=== PATIENT | female | born 1960 | race Caucasian/White ===

== ENCOUNTER 2021-06-05 11:08 | Emergency (ER) | payer OTHER ==
[2021-06-05] MEDS ORDERED: Acetaminophen/HYDROcodone 325-5 MG Tab PO ONE (11:47)
--- NOTE | 2021-06-05 11:54 | EDM.PDOC ---
ED HPI GENERAL MEDICAL PROBLEM - General Chief Complaint: Lower Extremity Injury/Pain Stated Complaint: FELL RIGHT CALF PAIN Time Seen by Provider: 06/05/21 11:40 Source of Information: Reports: Patient, RN History Limitations: Reports: No Limitations - History of Present Illness INITIAL COMMENTS - FREE TEXT/NARRATIVE: 60 yo female fell down some stairs today and had injury to her R distal leg. Not able to bear weight. Has an abrasion in area of injury. Tetanus is UTD. No other areas of injury. 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: Reports: Other (see below) (none) Right Lower Leg Pain Score (Numeric/FACES): 5 - Related Data Allergies Allergy/AdvReac Type Severity Reaction Status Date / Time No Known Allergies Allergy Verified 06/05/21 11:52 Home Meds: Home Meds Ascorbic Acid [Vitamin C] 250 mg PO DAILY 06/05/21 [History] Cholecalciferol (Vitamin D3) [Vitamin D] 5,000 units PO DAILY 06/05/21 [History] Hydrocodone/Acetaminophen [HYDROcodone-Acetaminophen 2.5-325 MG] 1 - 2 tab PO Q6H PRN 06/05/21 [History] [place]-3/DHA/Epa/Fish Oil [[place]-3 EC Softgel] 1 tab PO DAILY 06/05/21 [History] Sertraline [Zoloft] 100 mg PO DAILY 06/05/21 [History] methocarbamoL [Methocarbamol] 500 mg PO Q6H PRN 06/05/21 [History] Review of Systems - Review of Systems Review Of Systems: See Below Constitutional: Reports: No Symptoms Musculoskeletal: Reports: Leg Pain (right) Skin: Reports: Wound (abrasion R ant/distal leg) Neurological: Reports: No Symptoms ED EXAM, GENERAL - Physical Exam Exam: See Below Exam Limited By: No Limitations General Appearance: Alert, WD/WN, No Apparent Distress Eye Exam: Bilateral Eye: Normal Inspection Ears: Normal External Exam, Normal Canal, Hearing Grossly Normal Ear Exam: Bilateral Ear: Auricle Normal, Canal Normal Nose: Normal Inspection, No Blood Throat/Mouth: Normal Inspection, Normal Lips, Normal Voice, No Airway Compromise Head: Atraumatic, Normocephalic Neck: Normal Inspection Respiratory/Chest: No Respiratory Distress, No Accessory Muscle Use Extremities: Other (R leg is grossly normal. There is a superficial abrasion/bruising to the distal/anterior R leg. This area is tender to touch. ) Neurological: Alert, Oriented, CN II-XII Intact, Normal Cognition, No Motor/Sensory Deficits Psychiatric: Normal Affect, Normal Mood Skin Exam: Warm, Dry, No Rash, Ecchymosis (and abrasion distal/ant. R leg) Course - Vital Signs Last Recorded V/S: Last Vital Signs Temp 36.6 C 06/05/21 11:39 Pulse 57 L 06/05/21 11:39 Resp 16 06/05/21 11:39 BP 124/71 06/05/21 11:39 Pulse Ox 97 06/05/21 11:39 - Orders/Labs/Meds Orders: Active Orders 24 hr Category Date Time Status Tibia Fibula Rt [CR] Stat Exams 06/05/21 11:48 Taken Meds: Medications Discontinued Medications Generic Name Dose Route Start Last Admin Trade Name Freq PRN Reason Stop Dose Admin Hydrocodone Bitart/Acetaminophen 1 tab 06/05/21 11:47 06/05/21 12:02 Acetaminophen/Hydrocodone 325-5 Mg Tab PO 06/05/21 11:48 1 tab ONETIME ONE Administration - Radiology Interpretation Free Text/Narrative:: R tib/fib X-ray-neg Departure - Departure Time of Disposition: 12:40 Disposition: Home, Self-Care 01 Condition: Fair Clinical Impression: Contusion of right leg Qualifiers: Encounter type: initial encounter Qualified Code(s): S80.11XA - Contusion of right lower leg, initial encounter Abrasion of right leg Qualifiers: Encounter type: initial encounter Qualified Code(s): S80.811A - Abrasion, right lower leg, initial encounter - Discharge Information *PRESCRIPTION DRUG MONITORING PROGRAM REVIEWED*: Not Applicable *COPY OF PRESCRIPTION DRUG MONITORING REPORT IN PATIENT YARON: Not Applicable Instructions: Contusion, [id number] Referrals: PCP,None [Primary Care Provider] - Forms: ED Department Discharge Additional Instructions: Crutch walking with weight bearing as tolerated. If not better in a week, get rechecked. Use Young OR acetaminophen for pain relief. You may add ibuprofen to either of these other meds for added relief. Sepsis Event Note (ED) - Focused Exam Vital Signs: Vital Signs Temp Pulse Resp BP Pulse Ox 06/05/21 11:39 36.6 C 57 L 16 124/71 97 - My Orders Last 24 Hours: My Active Orders 06/05/21 11:48 Tibia Fibula Rt [CR] Stat - Assessment/Plan Last 24 Hours: My Active Orders 06/05/21 11:48 Tibia Fibula Rt [CR] Stat
--- NOTE | 2021-06-06 10:27 | CR ---
Tibia Fibula Rt CLINICAL HISTORY: Fall FINDINGS: There is an oblique nondisplaced fracture of the proximal fibula. No soft tissue abnormality is seen. Patient has had a previous anterior cruciate repair. There is a large calcaneal spur. There is calcification. Impression: Nondisplaced fracture proximal fibula
== END 2021-06-05 12:48 | disposition home or self-care (01) ==
LOC: JP.ED 11:08
DX: S80.11XA Contusion of right lower leg, initial encounter (principal); W10.9XXA Fall (on) (from) unspecified stairs and steps, initial encounter
CPT/HCPCS: 73590; 99283; A9270